=== PATIENT | male | born 1985 | race Caucasian/White ===

== ENCOUNTER 2018-04-12 11:58 | Outpatient (REF) | payer OTHER, SELFPAY ==
[2018-04-12 18:33] LABS: HCT 43.4 % (40.0-50.0); HGB 14.7 g/dL (13.5-17.5); Mean Corp. HGB Concentration 33.9 g/dL (32.0-36.0); Mean Corpuscular Hemoglobin 32.4 pg (27.0-33.0); Mean Corpuscular Volume 95.6 fL (80-95); Mean Platelet Volume 10.5 fL (8.0-11.0); Platelet Count 184 x1000/uL (130-400); RBC 4.54 m/cumm (4.50-6.00); RBC Distribution Width 12.2 % (11.8-14.1); White Blood Cell Count 6.07 k/cumm (4.4-10.8)
[2018-04-12 19:55] LABS: Iron 65 ug/dL (50-175); Total Iron Binding Capacity 310 ug/dL (250-450); Transferrin Sat 21 % (20-55)
[2018-04-12 20:06] LABS: ALT 76 U/L (12-78); AST 34 U/L (15-37); Albumin 4.2 g/dL (3.4-5.0); Alkaline Phosphatase 90 U/L (46-116); BUN 13 mg/dL (7-18); Bilirubin, Total 0.6 mg/dL (0.2-1.0); CREATININE 1.22 mg/dL (0.70-1.30); Calcium 9.2 mg/dL (8.5-10.1); Chloride 102 mmol/L (98-107); Glucose 91 mg/dL (70-100); Potassium 3.9 mmol/L (3.5-5.1); Sodium 140 mmol/L (136-145); TSH (W/Ref FT4) 1.91 uIU/mL (0.358-3.74); Total Protein 7.7 g/dL (6.4-8.2)
[2018-04-14 05:54] LABS: Vitamin D 25 Total 14.7 ng/ml (30-100)
[2018-04-15 14:10] LABS: Testosterone, Free 8.06 ng/dL (4.85-19.0); Testosterone, Total 212 ng/dL (240-950)
== END 2018-04-12 12:18 ==
LOC: NCHCN 11:58
PROVIDERS: PCP Internal Medicine; Visit Provider Nurse Practitioner
DX: R53.83 Other fatigue (principal)
CPT/HCPCS: 80053; 82306; 84402; 84403; 85027; 83540; 83550; 84443

== ENCOUNTER 2018-05-03 08:26 | Outpatient (REF) | payer OTHER, SELFPAY ==
[2018-05-04 09:10] LABS: LH 1.1 mIU/ml (2-9)
[2018-05-06 13:52] LABS: Testosterone, Free 4.41 ng/dL (4.85-19.0); Testosterone, Total 147 ng/dL (240-950)
== END 2018-05-03 08:46 ==
LOC: NCHCN 08:26
PROVIDERS: PCP Internal Medicine; Visit Provider Nurse Practitioner
DX: R68.82 Decreased libido (principal)
CPT/HCPCS: 84402; 84403; 83001; 83002

== ENCOUNTER 2018-05-24 09:06 | Outpatient (REF) | payer OTHER, SELFPAY ==
[2018-05-25 10:03] LABS: Prolactin 9.1 ng/ml (2.1-17.7)
== END 2018-05-24 09:26 ==
LOC: NCHCN 09:06
PROVIDERS: PCP Nurse Practitioner; Visit Provider Nurse Practitioner
DX: E23.0 Hypopituitarism (principal)
CPT/HCPCS: 84146

== ENCOUNTER 2018-05-31 00:38 | Outpatient (CLI) | payer OTHER, SELFPAY ==
[2018-05-31] MEDS: Gadoterate meglumine 20 ML VIAL IVP (08:33)
--- NOTE | 2018-05-31 08:47 | DI.MRI_ITS ---
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 Comparison CT scan of the brain is 05/02/17. The pituitary gland has a normal appearance. The infundibulum is midline. The optic chiasm has a normal appearance. No evidence of a sellar or suprasellar mass. Following contrast administration, there is normal enhancement of the pituitary gland. No enhancing lesion is seen. The ventricles and sulci are consistent with the patient's age. There is normal signal in the brain parenchyma. The basilar cisterns are patent. There is no acute midline shift or mass effect. The diffusion weighted images have a normal appearance. Gradient imaging shows no intracranial hemorrhage. The orbits and retro-orbital soft tissues are unremarkable. There is a normal flow void in the [place]. The visualized paranasal sinuses are clear. IMPRESSION: Normal MRI of the brain. No evidence of a pituitary or suprasellar mass or abnormal enhancement.
== END 2018-05-31 00:58 ==
PROVIDERS: PCP Nurse Practitioner; Visit Provider Nurse Practitioner
DX: E29.1 Testicular hypofunction (principal); E23.0 Hypopituitarism
CPT/HCPCS: 70553

== ENCOUNTER 2018-07-13 01:03 | Outpatient (CLI) | payer OTHER, SELFPAY ==
[2018-07-13 09:44] LABS: FREE T4 0.97 ng/dL (0.76-1.46)
[2018-07-14 09:19] LABS: FSH 3.5 mIU/ml (1.4-18.1); LH 3.2 mIU/ml (2-9)
[2018-07-14 10:00] LABS: Sex Hormone Binding Globulin 9.1 nmol/L (14.6-94.6)
[2018-07-15 22:00] LABS: Testosterone, Bioavailable 174 ng/dL (72-235); Testosterone, Total 295 ng/dL (240-950)
== END 2018-07-13 01:23 ==
PROVIDERS: PCP Nurse Practitioner; Visit Provider Internal Medicine Endocrinology, Diabetes & Metabolism
DX: E29.1 Testicular hypofunction (principal); R53.83 Other fatigue
CPT/HCPCS: 36415; 82533; 84403; 84410; 83001; 83002; 84270; 84439

== ENCOUNTER 2018-12-15 07:21 | Outpatient (CLI) | payer OTHER, SELFPAY ==
[2018-12-15 07:44] LABS: HCT 44.4 % (40.0-50.0); HGB 15.1 g/dL (13.5-17.5)
[2018-12-17 15:56] LABS: Testosterone, Bioavailable 168 ng/dL (72-235); Testosterone, Free 11.1 ng/dL (4.85-19.0); Testosterone, Total 284 ng/dL (240-950)
== END 2018-12-15 07:41 ==
PROVIDERS: PCP Nurse Practitioner; Visit Provider Internal Medicine Endocrinology, Diabetes & Metabolism
DX: E29.1 Testicular hypofunction (principal)
CPT/HCPCS: 36415; 84402; 84403; 84410; 85014; 85018

== ENCOUNTER → 2018-12-23 07:38 | Outpatient (BNVA) | payer OTHER, SELFPAY | PROVIDERS: PCP Nurse Practitioner; Referring Provider Nurse Practitioner; Visit Provider Surgery | DX: K42.9 Umbilical hernia without obstruction or gangrene | CPT/HCPCS: 99202; 99214 ==

== ENCOUNTER 2019-03-01 06:10 | Day surgery (SDC) | payer OTHER, SELFPAY ==
[2019-03-01] VITALS (9 sets, daily range): BP systolic 89–110; BP diastolic 47–76; PULSE 59–68; RESP 13–18; TEMP 36.3–36.6; O2SAT 94–100
--- NOTE | 2019-03-01 06:33 | ROE_ITS ---
Date of service: 03/01/19 Time of Service: 07:57 Operative Note Operative Note DATE OF PROCEDURE: 03/01/19 PRE-OP DIAGNOSIS: Umbilical Hernia POST-OP DIAGNOSIS: same PROCEDURE: Umbilical Hernia repair with mesh SURGEON: Zahira Erickson ANESTHESIA: GETA (ASA / ) and regional ESTIMATED BLOOD LOSS: 5 PATHOLOGY: none sent COMPLICATIONS: None Patient was transported to: PACU Patient's condition: stable Indications: Mr. Dinero is a pleasant 33-year-old gentleman who is seen today in the office to discuss umbilical hernia repair. He states he has had the hernia for a few months. In the last month he has had some discomfort especially when twisting or lifting something heavy. 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 He denies any nausea, vomiting or changes in bowel habits. Open Umbilical hernia repair with mesh was recommended. Risks, benefits and complications have been reviewed. Complications include but are not limited to bleeding, pain, infection, injury to underlying structures like bowel and adverse reaction to the medication. Questions were entertained and answered to their satisfaction and they wished to proceed. No guarantees were given or implied. Findings: Small <1 cm opening just above the umbilicus Procedure Description: After informed consent was obtained the patient was taken to the operating room and placed in a supine position. Monitors and SCDs were applied and a timeout was done. The patient's name, date of , procedure type, procedure site, allergies to medications, preoperative antibiotic, and DVT prophylaxis were all reviewed. Fire risk was assessed. Next anesthesia did a bilateral rectus block under ultrasound guidance. Please see their separate dictation. Once anesthesia was done the abdomen was prepped and draped in a sterile surgical fashion. 1% Lidocaine was injected into the dermis just above the umbilicus. An incision was made with a 10 blade above the umbilicus. Dissection was done with cautery through the subcutaneous tissues Down to the hernia sac. The hernia sac was opened with metzenbaum scissors. Fat was noted in the hernia sac. The fat was amputated with cautery. The defect was identified and measured 0.5 cm. The fascia was closed with a figure of eight 0 Vicryl suture. The subcutaneous tissue was re-approximated with 2-0 vicryl. The dermis was re-approximated with a running 4-0 Vicryl. The skin was cleaned and dried and skin affix was applied. The patient was woken up and taken back to recovery in stable condition. There were no immediate complications. Sponge, instrument and needle counts were correct at the end of the case x2.
--- NOTE | 2019-03-01 06:40 | PDOC.DSDIS_ITS ---
Discharge Plan Disposition Patient Disposition: HOME Condition: Good Discharge Details Reason For Visit: Umbilical Hernia repair Attending Provider: Zahira Erickson Primary Care Provider: Denita Rowland Home Meds and New Rx's Prescriptions: New acetaminophen [Tylenol] 325 mg tablet 650 mg PO Q6H PRN (Reason: pain) Qty: 30 RF: 0 ibuprofen 600 mg tablet 600 mg PO Q6H PRN (Reason: pain) Qty: 90 RF: 0 Continued testosterone cypionate 200 mg/mL kit 100 mg IM Q2W RF: 0 Discharge Instructions Instructions: Open Herniorrhaphy (DC) Additional Instructions: Activity at Home after surgery: 1. Make sure you walk outside at least 4 times per day 2. You should be able to climb a flight of stairs 3. No driving while in pain or taking pain medications 4. No strenuous activity or heavy lifting for 4 weeks (open surgery) Diet, Nutrition, & wound healin. Avoid alcohol until after you are recovered from your surgery 2. Make sure to eat plenty of lean protein (meat, fish, eggs, cottage cheese, beans) 3. Eat a variety of fruits and vegetables. Eat plenty of high fiber foods to avoid constipation. 4. Drink plenty of liquids to stay hydrated and avoid constipation Pain Medications: 1. Alternate Tylenol 650 mg and Ibuprofen 600 mg every 3 hours 2. If a narcotic has been prescribed take as directed only for breakthrough pain For Constipation: 1. Take Milk of Magnesia or MiraLax as needed for constipation Other: 1. You may shower daily. Do not scrub the incisions 2. Do not soak the incisions for 1 week 3. You may alternate ice and heat as needed for pain and swelling Wound Care: 1. Keep the incisions clean and dry Please call our office if you develop: 1. Fevers >101.5 2. Nausea or Vomiting 3. Worsening pain 4. Redness and thick discharge from the wounds If after hours please call the Hospital at and ask to speak to the on-call surgeon Referrals: Zahira Erickson MD [ [facility] STAFF PHYSICIAN] - 03/17/19 8:00 am Activity:: No lifting, pulling or pushing >20 lb x 4 weeks Diet:: As Tolerated Discharge Orders Discharge Orders: Discharge Order (Routine); Ordered 03/01/19 Ordered By: Zahira Erickson DS: Diagnosis Discharge Diagnosis (1) S/P ventral herniorrhaphy: Status: Acute
[2019-03-01] MEDS: Lactated Ringers 1,000 ML 80 ML IV (06:45)
--- NOTE | 2019-03-01 07:04 | HPE_ITS ---
Date of service: 03/01/19 Time of Service: 07:04 Assessment and Plan Assessment and plan (1) Umbilical hernia: Status: Acute Assessment and plan: A\\ Umbilical hernia P\\ Umbilical hernia repair with mesh Risks, benefits and complications have been reviewed. Complications include but are not limited to bleeding, pain, infection, injury to underlying structures like bowel and adverse reaction to the medication. Questions were entertained and answered to their satisfaction and they wished to proceed. No guarantees were given or implied. Qualifiers: Obstruction and gangrene presence: without obstruction or gangrene Qualified Code(s): K42.9 - Umbilical hernia without obstruction or gangrene History of Present Illness Narrative: Mr. Dinero is a pleasant 33-year-old gentleman who is seen today in the office to discuss umbilical hernia repair. He states he has had the hernia for a few months. In the last month he has had some discomfort especially when twisting or lifting something heavy. 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 He denies any nausea, vomiting or changes in bowel habits. He denies any cardiac history or respiratory history. No changes in his health since he was seen in the office. Review of Systems Constitutional Constitutional: Denies fever(s) Respiratory Respiratory: Denies chest congestion and Denies cough PFSH Medical History BMI 37.0-37.9, adult (Acute) Secondary male hypogonadism (Acute) Vitamin deficiency (Acute) vit D Surgical History S/P vasectomy (Acute) S/P ventral herniorrhaphy (Acute ~03/01/19) Social History Smoking/Tobacco Use Status: Current every day Tobacco Type: smokeless tobacco Smokeless tobacco user: chewing tobacco Alcohol Intake: current Alcohol Intake frequency: a few times a month Drug use: Never Substance use type: does not use Details: chewless tobacco last night Do you feel safe at home: Yes Do you feel safe in your relationship?: Yes Meds Home Medications and Allergies Home Medications Medication Instructions Recorded Confirmed Type testosterone cypionate 200 mg/mL 100 mg IM Q2W 12/20/18 03/01/19 History intramuscular kit acetaminophen [Tylenol] 650 mg PO Q6H PRN #30 tab 03/01/19 Rx ibuprofen 600 mg PO Q6H PRN #90 tab 03/01/19 Rx Allergies Allergy/AdvReac Type Severity Reaction Status Date / Time Penicillins Allergy Verified 03/01/19 06:30 Sulfa (Sulfonamide Allergy Verified 03/01/19 06:30 Antibiotics) Exam Resp Effort & Inspection: normal respiratory effort Auscultation: clear to auscultation bilaterally Cardio Rate: regular rate Rhythm: regular rhythm Heart Sounds: no gallops, no murmurs and no rubs Results Last Vital Signs Temp 97.5 F L 03/01/19 06:32 Pulse 60 03/01/19 06:32 Resp 18 03/01/19 06:32 BP 110/72 03/01/19 06:32 Pulse Ox 100 03/01/19 06:32
[2019-03-01] MEDS: ceFAZolin 2 GM/50 ML BAG IVPB (07:27)
[2019-03-01] MEDS: Bupivacaine 0.25% Pres-Free 30 ML VIAL (07:35)
[2019-03-01] MEDS: Bupivacaine 0.25% Pres-Free 10 ML VIAL (07:35)
[2019-03-01] MEDS: Lidocaine 1% Pres-Free 5 ML VIAL (07:46)
== END 2019-03-01 10:30 | disposition home or self-care (01) ==
PROVIDERS: PCP Nurse Practitioner; Visit Provider Surgery
PROC: (CPT 49585; principal; 2019-03-01 07:30)
DX: K42.9 Umbilical hernia without obstruction or gangrene (principal); Z87.19 Personal history of other diseases of the digestive system
CPT/HCPCS: 49585; 76942; NC; J0690; J1100; J1885; J2250; J2405

== ENCOUNTER → 2019-03-17 07:54 | Outpatient (BNVA) | payer OTHER, SELFPAY | PROVIDERS: PCP Nurse Practitioner; Referring Provider Nurse Practitioner; Visit Provider Surgery | DX: Z87.19 Personal history of other diseases of the digestive system (principal); Z48.815 Encounter for surgical aftercare following surgery on the digestive system ==

== ENCOUNTER 2019-04-25 07:33 | Outpatient (CLI) | payer OTHER, SELFPAY ==
[2019-04-25 16:39] LABS: HCT 41.7 % (40.0-50.0); HGB 14.2 g/dL (13.5-17.5)
[2019-04-28 16:22] LABS: Testosterone, Free 7.43 ng/dL (4.65-18.1); Testosterone, Total 225 ng/dL (240-950)
== END 2019-04-25 07:53 ==
PROVIDERS: PCP Nurse Practitioner; Visit Provider Internal Medicine Endocrinology, Diabetes & Metabolism
DX: E29.1 Testicular hypofunction (principal)
CPT/HCPCS: 36415; 84402; 84403; 85014; 85018

== ENCOUNTER 2019-10-12 01:43 | Outpatient (CLI) | payer OTHER, SELFPAY ==
[2019-10-12 10:28] LABS: HGB 14.6 g/dL (13.5-17.5)
[2019-10-12 11:40] LABS: Anion Gap 9.8 mmol/L (3-11); BUN 13 mg/dL (7-18); CO2 27.2 mmol/L (21.0-32.0); CREATININE 1.07 mg/dL (0.70-1.30); Chloride 103 mmol/L (98-107); Glucose 90 mg/dL (74-106); Potassium 4.4 mmol/L (3.5-5.1); Sodium 140 mmol/L (136-145)
[2019-10-16 17:01] LABS: Testosterone, Bioavailable 122 ng/dL (72-235); Testosterone, Free 10.4 ng/dL (4.65-18.1); Testosterone, Total 266 ng/dL (240-950)
== END 2019-10-12 02:03 ==
PROVIDERS: PCP Nurse Practitioner; Visit Provider Internal Medicine Endocrinology, Diabetes & Metabolism
DX: E29.1 Testicular hypofunction (principal)
CPT/HCPCS: 36415; 80048; 84402; 84403; 84410; 85014; 85018

== ENCOUNTER 2020-05-21 03:20 | Outpatient (CLI) | payer OTHER, SELFPAY ==
[2020-05-21 09:46] LABS: HCT 44.3 % (40.0-50.0)
[2020-05-21 10:36] LABS: Anion Gap 10.7 mmol/L (3-11); BUN 17 mg/dL (7-18); CO2 29.3 mmol/L (21.0-32.0); CREATININE 1.1 mg/dL (0.70-1.30); Calcium 10.3 mg/dL (8.5-10.1); Chloride 103 mmol/L (98-107); Glucose 96 mg/dL (74-106); Sodium 143 mmol/L (136-145)
[2020-05-27 11:25] LABS: Testosterone, Free 11.7 ng/dL (4.65-18.1); Testosterone, Total 300 ng/dL (240-950)
== END 2020-05-21 03:21 | disposition home or self-care (01) ==
LOC: LBO 03:20
PROVIDERS: PCP Nurse Practitioner; Visit Provider Internal Medicine Endocrinology, Diabetes & Metabolism
DX: E29.1 Testicular hypofunction (principal)
CPT/HCPCS: 36415; 80048; 84402; 84403; 85014; 85018

== ENCOUNTER 2020-11-07 04:14 | Outpatient (CLI) | payer OTHER, SELFPAY ==
[2020-11-07 15:29] LABS: HCT 41.2 % (40.0-50.0); HGB 14.2 g/dL (13.5-17.5)
[2020-11-07 16:01] LABS: Anion Gap 9.6 mmol/L (3-11); BUN 13 mg/dL (7-18); CO2 28.4 mmol/L (21.0-32.0); CREATININE 1.1 mg/dL (0.70-1.30); Calcium 8.7 mg/dL (8.5-10.1); Chloride 105 mmol/L (98-107); Glucose 155 mg/dL (74-106); Potassium 3.8 mmol/L (3.5-5.1); Sodium 143 mmol/L (136-145)
[2020-11-13 01:11] LABS: Testosterone, Bioavailable 101 ng/dL (72-235); Testosterone, Total 183 ng/dL (240-950)
== END 2020-11-07 04:15 | disposition home or self-care (01) ==
LOC: LBO 04:14
PROVIDERS: PCP Nurse Practitioner; Visit Provider Internal Medicine Endocrinology, Diabetes & Metabolism
DX: E29.1 Testicular hypofunction (principal)
CPT/HCPCS: 36415; 80048; 84402; 84403; 84410; 85014; 85018

== ENCOUNTER 2021-06-25 02:18 | Outpatient (CLI) | payer OTHER, SELFPAY ==
[2021-06-25 07:57] LABS: HCT 43.6 % (40.0-50.0); HGB 14.9 g/dL (13.5-17.5)
[2021-06-25 08:26] LABS: Anion Gap 10.4 mmol/L (3-11); BUN 16 mg/dL (7-18); CO2 25.6 mmol/L (21.0-32.0); CREATININE 1.2 mg/dL (0.70-1.30); Calcium 8.8 mg/dL (8.5-10.1); Chloride 106 mmol/L (98-107); Glucose 125 mg/dL (74-106); Potassium 3.9 mmol/L (3.5-5.1); Sodium 142 mmol/L (136-145)
[2021-06-28 17:23] LABS: Testosterone, Bioavailable 311 ng/dL (72-235); Testosterone, Free 14.9 ng/dL (4.65-18.1); Testosterone, Total 451 ng/dL (240-950)
== END 2021-06-25 02:19 | disposition home or self-care (01) ==
LOC: LBO 02:19
PROVIDERS: PCP Nurse Practitioner; Visit Provider Internal Medicine Endocrinology, Diabetes & Metabolism
DX: E29.1 Testicular hypofunction (principal)
CPT/HCPCS: 36415; 80048; 84402; 84403; 84410; 85014; 85018

== ENCOUNTER 2022-01-08 02:27 | Outpatient (CLI) | payer OTHER, SELFPAY ==
[2022-01-08 16:08] LABS: HCT 42.3 % (40.0-50.0); HGB 14.6 g/dL (13.5-17.5)
[2022-01-08 16:46] LABS: BUN 15 mg/dL (7-18); CREATININE 1.3 mg/dL (0.70-1.30); Calcium 9.2 mg/dL (8.5-10.1); Chloride 105 mmol/L (98-107); Estimated GFR 72.11 (mL/min/1.73m2); Glucose 139 mg/dL (74-106); Sodium 142 mmol/L (136-145)
[2022-01-18 13:31] LABS: Testosterone, Free 10.7 ng/dL (4.65-18.1); Testosterone, Total 246 ng/dL (240-950)
== END 2022-01-08 02:28 | disposition home or self-care (01) ==
LOC: LBO 02:27
PROVIDERS: PCP Nurse Practitioner; Visit Provider Internal Medicine Endocrinology, Diabetes & Metabolism
DX: E29.1 Testicular hypofunction (principal)
CPT/HCPCS: 36415; 80048; 84402; 84403; 85014; 85018

== ENCOUNTER 2022-07-10 00:53 | Outpatient (CLI) | payer OTHER, SELFPAY ==
--- NOTE | 2022-07-10 07:00 | DI.MRI_ITS ---
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 TECHNIQUE: Multiplanar multisequence MRI of the brain and internal auditory canals was performed. CONTRAST MATERIAL: IV Contrast: 20 mL of Dotarem contrast administered. COMPARISON: MR MR brain pituitary wo/w from 05/31/2018 FINDINGS: The examination is limited due to patient motion artifact. VENTRICLES AND EXTRA AXIAL SPACES: Normal in size and morphology for the patient's age. HEMORRHAGE: None. CEREBRAL PARENCHYMA: No focus of restricted diffusion to suggest acute infarct. No space-occupying le tammi identified. MIDLINE SHIFT: None. BRAINSTEM/CEREBELLUM: Normal. CALVARIUM: Normal. ENHANCEMENT: No suspicious enhancement identified. VISUALIZED PARANASAL SINUSES/MASTOIDS: The right maxillary sinus is hypoplastic with mild mucosal thi ckening. The remaining visualized paranasal sinuses and mastoid air cells are clear. [place] OF PAINTER: Normal flow void. PITUITARY GLAND: Unremarkable. IAC/CP ANGLE: The internal auditory canals are within normal limits. The cerebellar pontine angles ar e unremarkable. No enhancing lesions are seen. Visualized portion of the facial nerves appear within normal limits. OTHER FINDINGS: None. IMPRESSION: 1. No evidence of an intracranial mass or enhancing lesion, specifically no mass or enhancing lesion is seen in the region of the IAC's or cerebellopontine angles. 2. No evidence of an acute infarct or enhancing lesion. DATA REPOSITORY:
[2022-07-10] MEDS: Normal Saline Flush 10 ML SYR IVP (07:56)
[2022-07-10] MEDS: Gadoterate meglumine 20 ML VIAL IVP (07:56)
== END 2022-07-10 01:13 ==
LOC: DI 00:54
PROVIDERS: PCP Nurse Practitioner Family; Visit Provider Otolaryngology
DX: H90.3 Sensorineural hearing loss, bilateral (principal)
CPT/HCPCS: 70553

== ENCOUNTER 2022-09-22 09:35 | Outpatient (CLI) | payer OTHER, SELFPAY ==
[2022-09-22 10:01] LABS: HCT 44.3 % (40.0-50.0); HGB 15.2 g/dL (13.5-17.5)
[2022-09-22 10:28] LABS: Anion Gap 8.4 mmol/L (3-11); BUN 13 mg/dL (7-18); CO2 29.6 mmol/L (21.0-32.0); CREATININE 1.1 mg/dL (0.70-1.30); Calcium 9.5 mg/dL (8.5-10.1); Chloride 107 mmol/L (98-107); Estimated GFR 88.12 (mL/min/1.73m2); Glucose 99 mg/dL (74-106); Potassium 4.6 mmol/L (3.5-5.1); Sodium 145 mmol/L (136-145)
[2022-09-29 19:30] LABS: Testosterone, Bioavailable 181 ng/dL (72-235); Testosterone, Free 12.2 ng/dL (4.65-18.1); Testosterone, Total 286 ng/dL (240-950)
== END 2022-09-22 09:36 | disposition home or self-care (01) ==
LOC: LBO 09:35
PROVIDERS: PCP Nurse Practitioner Family; Visit Provider Internal Medicine Endocrinology, Diabetes & Metabolism
DX: E29.1 Testicular hypofunction (principal)
CPT/HCPCS: 36415; 80048; 84402; 84403; 84410; 85014; 85018

== ENCOUNTER 2023-04-27 03:49 | Outpatient (CLI) | payer OTHER, SELFPAY ==
[2023-04-27 07:56] LABS: HCT 43.2 % (40.0-50.0)
[2023-04-27 08:45] LABS: Anion Gap 5.1 mmol/L (3-11); BUN 16 mg/dL (7-18); CO2 26.9 mmol/L (21.0-32.0); CREATININE 1.1 mg/dL (0.70-1.30); Calcium 9.1 mg/dL (8.5-10.1); Chloride 106 mmol/L (98-107); Estimated GFR 87.57 (mL/min/1.73m2); Glucose 102 mg/dL (74-106); Sodium 138 mmol/L (136-145)
[2023-04-27 08:48] LABS: Hemoglobin A1C 5.1 % (<5.7)
[2023-04-27 09:00] LABS: Calculated LDL 91 mg/dL (<100); Cholesterol 153 mg/dL (<200); HDL Cholesterol 37 mg/dL (40-60); TSH (W/Ref FT4) 2.77 uIU/mL (0.36-3.74); Triglyceride 129 mg/dL (<150)
[2023-05-03 18:45] LABS: Testosterone, Bioavailable 189 ng/dL (72-235); Testosterone, Free 12.2 ng/dL (4.65-18.1); Testosterone, Total 279 ng/dL (240-950)
== END 2023-04-27 03:50 | disposition home or self-care (01) ==
LOC: LBO 03:49
PROVIDERS: PCP Nurse Practitioner Family; Visit Provider Internal Medicine Endocrinology, Diabetes & Metabolism
DX: E29.1 Testicular hypofunction (principal); Z13.220 Encounter for screening for lipoid disorders; Z68.41 Body mass index [BMI] 40.0-44.9, adult; E66.9 Obesity, unspecified
CPT/HCPCS: 36415; 80048; 80061; 84402; 84403; 84410; 83036; 84443; 85014; 85018

== ENCOUNTER 2023-12-03 01:34 | Outpatient (CLI) | payer OTHER, SELFPAY ==
[2023-12-03 11:48] LABS: HCT 44.6 % (40.0-50.0); HGB 14.9 g/dL (13.5-17.5)
[2023-12-03 12:32] LABS: Anion Gap 9.1 mmol/L (3-11); BUN 15 mg/dL (7-18); CO2 25.9 mmol/L (21.0-32.0); CREATININE 1.3 mg/dL (0.70-1.30); Calcium 9.1 mg/dL (8.5-10.1); Chloride 107 mmol/L (98-107); Estimated GFR 71.67 (mL/min/1.73m2); Glucose 80 mg/dL (74-106); Potassium 3.9 mmol/L (3.5-5.1); Sodium 142 mmol/L (136-145)
[2023-12-27 11:06] LABS: Misc Referral (MAYO) See Comments
== END 2023-12-03 01:35 | disposition home or self-care (01) ==
LOC: LBO 01:34
PROVIDERS: PCP Nurse Practitioner Family; Visit Provider Internal Medicine Endocrinology, Diabetes & Metabolism
DX: E66.9 Obesity, unspecified (principal); E29.1 Testicular hypofunction
CPT/HCPCS: 36415; 80048; 84402; 84403; 84410; 85014; 85018

== ENCOUNTER 2023-12-07 07:14 | Outpatient (REF) | payer OTHER, SELFPAY ==
[2023-12-14 02:10] LABS: Midnight Cortisol <50 ng/dL (<100)
== END 2023-12-07 07:15 | disposition home or self-care (01) ==
LOC: LBN 07:14
PROVIDERS: PCP Nurse Practitioner Family; Visit Provider Internal Medicine Endocrinology, Diabetes & Metabolism
DX: E29.1 Testicular hypofunction (principal); E66.9 Obesity, unspecified
CPT/HCPCS: 82530

== ENCOUNTER 2024-03-24 11:31 | Outpatient (CLI) | payer OTHER, SELFPAY ==
--- NOTE | 2024-03-24 | DI.RAD_ITS ---
Exam(s) XR LUMBAR SPINE COMPLETE EXAM: XR LUMBAR SPINE COMPLETE CLINICAL HISTORY: LOW BACK PAIN M54.50 , [id number], LIMITED IMPROVEMENT WITH PT. TECHNIQUE: 2D digital imaging was performed of the lumbar spine. Five images were obtained. AP, la teral, right oblique, left oblique and L5-S1 spot views were obtained. COMPARISON: No exams were available for comparison FINDINGS: BONES: No fracture or destructive lesion. There are endplate osteophytes seen at L4-L5 and L5-S1. No facet hypertrophy identified. DISKS: Intervertebral disc spaces are maintained. ALIGNMENT: Lumbar spinal alignment is within normal limits. No spondylolysis or spondylolisthesis. SOFT TISSUE: Normal. IMPRESSION: Mild degenerative changes seen in the lower lumbar spine. DATA REPOSITORY: RADIATION DOSE DELIVERED:
== END 2024-03-24 11:51 ==
PROVIDERS: PCP Nurse Practitioner Family; Visit Provider Physician Assistant Medical
DX: M51.360 Other intervertebral disc degeneration, lumbar region with discogenic back pain only (principal)
CPT/HCPCS: 72110

== ENCOUNTER 2024-05-22 11:49 | Outpatient (CLI) | payer OTHER, SELFPAY ==
[2024-05-22 09:33] LABS: HCT 43.3 % (40.0-50.0); HGB 14.9 g/dL (13.5-17.5)
[2024-05-22 10:02] LABS: Anion Gap 11.4 mmol/L (3-11); BUN 18 mg/dL (7-18); CO2 24.6 mmol/L (21.0-32.0); CREATININE 1.1 mg/dL (0.70-1.30); Calcium 9.3 mg/dL (8.5-10.1); Chloride 107 mmol/L (98-107); Estimated GFR 87.03 (mL/min/1.73m2); Glucose 103 mg/dL (74-106); Potassium 3.9 mmol/L (3.5-5.1); Sodium 143 mmol/L (136-145)
[2024-05-25 11:49] LABS: Testosterone, Total 327 ng/dL (240-950)
== END 2024-05-22 11:50 | disposition home or self-care (01) ==
LOC: LBO 11:52
PROVIDERS: PCP Nurse Practitioner Family; Visit Provider Internal Medicine Endocrinology, Diabetes & Metabolism
DX: E29.1 Testicular hypofunction (principal); E66.9 Obesity, unspecified
CPT/HCPCS: 36415; 80048; 84403; 85014; 85018

== ENCOUNTER 2024-07-31 21:05 | Outpatient (REF) | payer OTHER, SELFPAY ==
[2024-07-31 21:10] LABS: Abs Immature Grans 0.06 10^3/uL (0.0-0.06); Absolute Basophil Count 0.05 10^3/uL (0.0-0.2); Absolute Eosinophil Count 0.09 10^3/uL (0.0-0.7); Absolute Lymphocyte Count 2.52 10^3/uL (1.2-3.4); Absolute Monocyte Count 0.66 10^3/uL (0.1-0.8); Absolute Neutrophil Count 6.05 10^3/uL (1.2-6.7); Basophils % 0.5 %; HCT 44.1 % (40.0-50.0); HGB 14.9 g/dL (13.5-17.5); Immature Grans % 0.6 %; Lymphocytes % 26.7 %; MCH 32.3 pg (27.0-33.0); MCHC 33.8 % (32.0-36.0); MCV 96 fL (80-95); MPV 9.9 fL (8.0-11.0); Neutrophils % 64.2 %; Platelet Count 219 10^3/uL (130-400); RBC 4.61 10^6/uL (4.36-5.78); RDW 12.1 % (11.8-14.1); WBC 9.43 10^3/uL (4.4-10.8)
[2024-07-31 21:16] LABS: Bilirubin Negative (Negative); Blood Negative (Negative); Clarity Clear (Clear); Glucose Negative (Negative); Ketones Negative (Negative); Leukocyte Esterase Negative (Negative); Nitrite Negative (Negative)
[2024-07-31 21:24] LABS: ALT 53 U/L (16-63); AST 34 U/L (15-37); Albumin 3.8 g/dL (3.4-5.0); Alkaline Phosphatase 92 U/L (46-116); Anion Gap 10.1 mmol/L (3-11); BUN 18 mg/dL (7-18); Bilirubin, Total 0.4 mg/dL (0.2-1.0); CO2 26.9 mmol/L (21.0-32.0); CREATININE 1.2 mg/dL (0.70-1.30); Calcium 9.3 mg/dL (8.5-10.1); Chloride 106 mmol/L (98-107); Glucose 108 mg/dL (74-106); Potassium 4.1 mmol/L (3.5-5.1); Sodium 143 mmol/L (136-145); Total Protein 6.9 g/dL (6.4-8.2)
== END 2024-07-31 21:06 | disposition home or self-care (01) ==
LOC: NCHCN 21:05
PROVIDERS: PCP Nurse Practitioner Family; Visit Provider Nurse Practitioner Family
DX: Z01.818 Encounter for other preprocedural examination (principal)
CPT/HCPCS: 80053; 81003; 85025; 85610; 85730

== ENCOUNTER 2024-08-01 10:27 | Outpatient (CLI) | payer OTHER, SELFPAY ==
[2024-08-01 13:31] LABS: INR 0.9 (0.9-1.1); PTT Activated 24.7 sec (20.6-30.2); Prothrombin Time 9.4 sec (9.1-11.1)
== END 2024-08-01 10:28 | disposition home or self-care (01) ==
LOC: LBO 10:27
PROVIDERS: PCP Nurse Practitioner Family; Visit Provider Nurse Practitioner Family
DX: Z01.812 Encounter for preprocedural laboratory examination (principal)
CPT/HCPCS: 36415; 85610; 85730

== ENCOUNTER 2024-12-27 04:15 | Outpatient (CLI) | payer OTHER, SELFPAY ==
[2024-12-27 08:42] LABS: HGB 14.5 g/dL (13.5-17.5)
[2024-12-27 09:42] LABS: Anion Gap 6.3 mmol/L (3-11); BUN 18 mg/dL (7-18); CO2 28.7 mmol/L (21.0-32.0); Calcium 9.1 mg/dL (8.5-10.1); Chloride 106 mmol/L (98-107); Estimated GFR 77.92 (mL/min/1.73m2); Glucose 91 mg/dL (74-106); Potassium 4.2 mmol/L (3.5-5.1); Sodium 141 mmol/L (136-145)
[2025-01-01 19:30] LABS: Albumin 4.4 g/dL (3.6-5.1); SHBG 10 nmol/L (10-50); Testosterone, Bioavailable 204.0 ng/dL; Testosterone, Free 101.3 pg/mL (46.0-224.0)
== END 2024-12-27 04:16 | disposition home or self-care (01) ==
LOC: LBO 04:17
PROVIDERS: PCP Nurse Practitioner Family; Visit Provider Internal Medicine Endocrinology, Diabetes & Metabolism
DX: E29.1 Testicular hypofunction (principal); E66.9 Obesity, unspecified
CPT/HCPCS: 36415; 80048; 82040; 84270; 85018